=== PATIENT | male | born 1990 | race Two or more races ===

== ENCOUNTER 2018-03-06 16:03 | Emergency (ER) | payer BC ==
[2018-03-06] MEDS ORDERED: Sodium Chloride 0.9% 10 ML Syringe FLUSH PRN (16:15)
[2018-03-06] MEDS ORDERED: HYDROmorphone 0.5 MG/0.5 ML SYRINGE IVPUSH ONE ×2 (16:20→17:35)
[2018-03-06] MEDS ORDERED: Ondansetron 4 MG/2 ML SDV IVPUSH ONE (16:20)
--- NOTE | 2018-03-06 16:25 | EDM.PDOC ---
ED HPI GENERAL MEDICAL PROBLEM - General Chief Complaint: Abdominal Pain Stated Complaint: ABDOMINAL PAINS Time Seen by Provider: 03/06/18 16:15 Source of Information: Reports: Patient, RN Notes Reviewed - History of Present Illness INITIAL COMMENTS - FREE TEXT/NARRATIVE: 27-year-old male presents with severe left sided abdominal and flank discomfort radiating to the left groin. [place] about an hour ago. Continues severe. No pain to the right abdomen. Been no nausea or vomiting. No history of similar discomfort in the past. Left Lower Abdomen Pain Score (Numeric/FACES): 10 - Related Data Allergies Allergy/AdvReac Type Severity Reaction Status Date / Time No Known Allergies Allergy Verified 03/06/18 16:09 Home Meds: Home Meds Acetaminophen/HYDROcodone [[place] 325-5 MG] 1 tab PO Q6H PRN #10 tablet 03/06/18 [Rx] Past Medical History - Past Surgical History GI Surgical History: Reports: Appendectomy Social & Family History - Tobacco Use Smoking Status *Q: Never Smoker - Caffeine Use Caffeine Use: Reports: None - Recreational Drug Use Recreational Drug Use: No ED ROS GENERAL - Review of Systems Review Of Systems: See Below Constitutional: Denies: Fever, Chills HEENT: Reports: No Symptoms Respiratory: Denies: Shortness of Breath Cardiovascular: Denies: Chest Pain GI/Abdominal: Reports: Abdominal Pain (Left lower abdomen and left flank radiating to left groin). Denies: Diarrhea, Nausea, Vomiting Musculoskeletal: Reports: Back Pain (Flank) Skin: Reports: No Symptoms Neurological: Reports: No Symptoms ED EXAM, RENAL/ - Physical Exam Exam: See Below General Appearance: Alert, Severe Distress Throat/Mouth: Normal Inspection Head: Atraumatic Neck: Supple Respiratory/Chest: No Respiratory Distress, Lungs Clear, Normal Breath Sounds Cardiovascular: Tachycardia GI/Abdominal: Tender (Left lower abdomen) Back Exam: CVA Tenderness (L) Neurological: Alert, No Motor/Sensory Deficits Skin Exam: Warm, Dry, Normal Color Course - Vital Signs Last Recorded V/S: Last Vital Signs Temp 97.4 F 03/06/18 16:07 Pulse 109 H 03/06/18 16:07 Resp 18 03/06/18 16:07 BP 140/94 H 03/06/18 16:07 Pulse Ox 97 03/06/18 16:07 - Orders/Labs/Meds Orders: Active Orders 24 hr Category Date Time Status Peripheral IV Care [RC] . DIRECTED Care 03/06/18 16:16 Active Abdomen Pelvis wo Cont [CT] Stat Exams 03/06/18 17:05 Taken Sodium Chloride 0.9% [Saline Flush] Med 03/06/18 16:15 Active 10 ml FLUSH ASDIRECTED PRN Peripheral IV Insertion Adult [OM.PC] Stat Oth 03/06/18 16:16 Ordered Medication Orders Sodium Chloride (Saline Flush) 10 ml FLUSH ASDIRECTED PRN PRN Reason: Keep Vein Open Last Admin: 03/06/18 16:17 Dose: 10 ml Labs: Laboratory Tests 03/06/18 Range/Units 17:25 Urine Color Dark yellow (Yellow) Urine Appearance Slt cloudy H (Clear) Urine pH 6.5 (5.0-8.0) Ur Specific [place] > or = 1.030 (1.005-1.030) Urine Protein 1+ H (Negative) Urine Glucose (UA) Negative (Negative) Urine Ketones Negative (Negative) Urine Occult Blood 2+ H (Negative) Urine Nitrite Negative (Negative) Urine Bilirubin 1+ H (Negative) Urine Urobilinogen 1.0 (0.2-1.0) Ur Leukocyte Esterase Negative (Negative) Meds: Medications Generic Name Dose Route Start Last Admin Trade Name Freq PRN Reason Stop Dose Admin Sodium Chloride 10 ml 03/06/18 16:15 03/06/18 16:17 Saline Flush FLUSH 10 ml ASDIRECTED PRN Administration Keep Vein Open Discontinued Medications Generic Name Dose Route Start Last Admin Trade Name Freq PRN Reason Stop Dose Admin Hydromorphone HCl 1 mg 03/06/18 16:20 03/06/18 16:28 Dilaudid IVPUSH 03/06/18 16:21 1 mg ONETIME ONE Administration Hydromorphone HCl 0.5 mg 03/06/18 17:35 03/06/18 17:40 Dilaudid IVPUSH 03/06/18 17:36 0.5 mg ONETIME ONE Administration Ondansetron HCl 4 mg 03/06/18 16:20 03/06/18 16:26 Zofran IVPUSH 03/06/18 16:21 4 mg ONETIME ONE Administration - Re-Assessments/Exams Free Text/Narrative Re-Assessment/Exam: 03/06/18 18:29. Patient has a 4 mm stone left UVJ. Or a further second dose of Dilaudid pain is now completely gone. It is possible he has now passed the stone into the bladder. Departure - Departure Time of Disposition: 18:30 Disposition: Home, Self-Care 01 Condition: Fair Clinical Impression: Ureteral colic, Kidney stone on left side - Discharge Information Prescriptions: Acetaminophen/HYDROcodone [[place] 325-5 MG] 1 tab PO Q6H PRN #10 tablet PRN Reason: Pain Instructions: Kidney Stones, [id number] Forms: ED Department Discharge Additional Instructions: Strain urine to watch for stone, Tylenol or ibuprofen if needed for mild to moderate discomfort, hydrocodone if needed for more severe pain. Do not take Tylenol and hydrocodone at the same time, do not drive or work when taking hydrocodone. - My Orders Last 24 Hours: My Active Orders 03/06/18 16:15 Sodium Chloride 0.9% [Saline Flush] 10 ml FLUSH ASDIRECTED PRN 03/06/18 16:16 Peripheral IV Care [RC] . DIRECTED Peripheral IV Insertion Adult [OM.PC] Stat 03/06/18 17:05 Abdomen Pelvis wo Cont [CT] Stat - Assessment/Plan Last 24 Hours: My Active Orders 03/06/18 16:15 Sodium Chloride 0.9% [Saline Flush] 10 ml FLUSH ASDIRECTED PRN 03/06/18 16:16 Peripheral IV Care [RC] . DIRECTED Peripheral IV Insertion Adult [OM.PC] Stat 03/06/18 17:05 Abdomen Pelvis wo Cont [CT] Stat
--- NOTE | 2018-03-07 08:46 | CT ---
CT abdomen and pelvis Technique: Multiple axial sections were obtained from above the dome of the diaphragm inferiorly through the pubic symphysis. Intravenous and oral contrast was not utilized. Study has been performed as a ureteral stone protocol. Comparison: No prior abdominal imaging. Findings: Dilated left ureter is seen. This finding is due to an obstructing stone within the distal left ureter at the UVJ measuring approximately 3 mm. No other abnormal calcifications are seen along the course of the ureters. Kidneys show no abnormal calcifications. Visualized lung bases show nothing acute. Noncontrast appearance of the liver shows a small calcification inferiorly within the right lobe which is felt to be incidental. Gallbladder contains no calcified gallstones. Spleen appears within normal limits. Adrenal glands appear unremarkable. Pancreas appears normal. Aorta shows no aneurysmal dilatation. No retroperitoneal adenopathy or mesenteric abnormalities are seen. No pelvic mass or adenopathy is seen. No free fluid or inflammatory change is seen within the abdomen or pelvis. Appendix is not visualized with certainty. Bone window settings were reviewed which appear within normal limits for the patient's age. Impression: 1. Left-sided hydronephrosis due to 3 mm distal left ureteral obstructing stone at the UVJ. 2. Other normal findings as described above. Diagnostic code #3 Agree with preliminary report issued by [facility] ([facility] preliminary report dictated on 03/06/18, 6:44 PM Central Time)
== END 2018-03-06 18:46 | disposition home or self-care (01) ==
LOC: JD.ED 16:03
DX: N20.2 Calculus of kidney with calculus of ureter (principal); Z90.49 Acquired absence of other specified parts of digestive tract
CPT/HCPCS: 74176; 81003; 96374; 96375; 96376; 99284; J1170; J2405; J7050